=== PATIENT | male | born 1965 | race Caucasian/White ===

== ENCOUNTER 2018-03-27 12:40 | Emergency (ER) | payer OTHER ==
[2018-03-27] MEDS ORDERED: LIDO 2%/EPI 1:200000 PRESRVFRE (20 ML SDVIAL) ONE (12:49)
[2018-03-27] MEDS ORDERED: ceFAZolin 2 GRAM PREMIX BAG IVPB ONE ×2 (12:53→14:00)
[2018-03-27] MEDS ORDERED: DIPHTH,PERTUSS(ACELL),TET 0.5 ML DISP.SYRIN IM ONE (12:54)
[2018-03-27] MEDS ORDERED: ceFAZolin SODIUM 1 GM VIAL ONE (12:55)
[2018-03-27] MEDS ORDERED: LIDOCAINE HCL 1%, 10 MG/ML (20ML VIAL) ONE (12:57)
[2018-03-27 12:58] VITALS: BP 117/70; PULSE 60; TEMP 98; BMI 21.9
--- NOTE | 2018-03-27 13:09 | PDOC ---
History of Present Illness - General Chief Complaint: Laceration Stated Complaint: LEFT WRIST CUT Time Seen by Provider: 03/27/18 12:49 History Source: Patient Exam Limitations: No Limitations - History of Present Illness Initial Comments: 03/27/18 13:09 53y M no phx present with laceration. PT was doing gardening with a chainsaw and injured his L wrist. Pt denies any other injuries. No associated numbness/ tingling/weakness of his hand. pt also endorsed minimal bleeding pt not on any ac, asa. no meds at [facility]. Past History - Past Medical History Allergies/Adverse Reactions: Allergies Allergy/AdvReac Type Severity Reaction Status Date / Time No Known Allergies Allergy Verified 03/27/18 12:41 Home Medications: Ambulatory Orders No Home Medications 0 dose .ROUTE UTDICT 10/24/13 Cephalexin Monohydrate [Keflex -] 500 mg PO Q8H #15 capsule 03/27/18 COPD: No Other medical history: DENIES - Suicide/Smoking/Psychosocial Hx Smoking History: Never smoked Hx Alcohol Use: No Drug/Substance Use Hx: No Substance Use Type: Alcohol Review of Systems - Review of Systems Able to Perform ROS?: Yes Comments:: 03/27/18 13:10 Constitutional - no reported Fever, Chills, Musculskelatal - +wrist pain no reported back pain, joint swelling, neck pain skin - +wound no reported bruising, erythema, rash neurological: no reported numbness, focal weakness, tingling, ataxia, hematologic: no reported easy bruising, easy bleeding *Physical Exam - Vital Signs Last Vital Signs Temp Pulse Resp BP Pulse Ox 98.0 F 60 17 117/70 100 03/27/18 12:41 03/27/18 12:41 03/27/18 12:41 03/27/18 12:41 03/27/18 12:41 - Physical Exam Comments: 03/27/18 14:27 GENERAL: The patient is awake, alert, and fully oriented, Nontoxic - in no acute distress. NEUROLOGICAL: No facial assymetry, Normal speech, normal sensation throughout fingers/hand/wrist HAND/WRIST: L extremity exam: sensation intact throughout hand/fingers, motor function (flexion/exntesion) intact at each phylageal joint/wrist of each digit (tested independently). tendon visible underneeth the wound SKIN: Warm, Dry, normal turgor, 8 cm wound with irregular margins on volar aspect of L wrist, no signficiant active bleeding Procedures - Consent Consent obtained: Verbal - Laceration/Wound Repair Left Volar Wrist Wound Length: 7.6 to 12.5 cm Wound Explored: clean, no foreign body present Wound's Depth, Shape: superficial, irregular, contused tissue Irrigated w/ Saline: Yes Anesthesia: 1% Lidocaine Amount of Anesthetic (ccs): 14 Wound Debrided: moderate Wound Repaired With: Sutures Suture Size/Type: 4:0 Number of Sutures: 10 Layer Closure: No Sterile Dressing Applied: Yes Progress: 03/27/18 14:31 laceration irrigated throughly with 1L of NS no foreign bodies/particles identified distal end of wound was dibrided and closed proximal end of wound showed macerated skin, nonvialbe skin was dibrided, but part avulsed skin was loosely approximated Medical Decision Making - Medical Decision Making 03/27/18 13:19 traumatic laceration w/ chainsaw no neuro damage, completely motor intact each joint in phylanges tested indiependently on flexion/extension and are intact/strong tendon visible, but undamaged will give 2g ancef will update tetanus will irrigate throughly and close laceration 03/27/18 14:31 laceration reoaiured and irregiated bacitrac applied, dressed with strile gauze will discharge the patient with PO abx return in 48 hrs for a wound check signs of infections discussed with the aptient I discussed the physical exam findings, ancillary test results and final diagnoses with the patient. I answered all of the patient's questions. The patient was satisfied with the care received and felt comfortable with the discharge plan and treatment plan. The patient will call their primary care physician within 24 hours to arrange follow-up and will return to the Emergency Department with any new, persistent or worsening symptoms. *DC/Admit/Observation/Transfer Diagnosis at time of Disposition: Laceration - Discharge Dispostion Disposition: HOME Condition at time of disposition: Improved Admit: No - Referrals Referrals: [facility] [place] [facility] [place] [Provider Group] - Patient Instructions Printed Discharge Instructions: DI for Laceration Repair Additional Instructions: Regrese al departamento de emergencia de inmediato con NINGN sntoma nuevo, persistente o que empeore, incluidos enrojecimiento, sangrado, secrecin purulenta, hinchazn u otras preocupaciones. Mantenga el arnoldo limpia y seca cara 48 horas. regresa en 48 horas para un control de herida. No funciona por 1 semana. Luego puede limpiar suavemente con agua y jabn. Aplique bacitracin dos veces al da. Mantenga el arnoldo lejos raquel cara los prximos 9 meses, use protector solar y use un sombrero si necesita estar al andrew para mejorar la apariencia de la cicatriz. Regrese en 10-14 rascon para la eliminacin de la sutura. Complete los antibiticos segn lo prescrito. Los resultados fueron discutidos con usted. Asegrese de que douglass mdico revise los resultados de douglass evaluacin de emergencia. ===== Return to the emergency department immediately with ANY new, persistent or worsening symptoms including any redness, bleeding, purulent discharge, swelling or other concerns. Keep the area clean and dry for 48 hours. return in 48 hrs for a wound check. No working for 1 week. Afterwards you may clean gently with soap and water. Apply bacitracin twice a day. Keep the area away from the sun for the next 9 months, please use sunscreen and wear a hat if you need to be in the sun to improve appearance of the scar. Return in 10-14 days for suture removal. Complete the antibiotics as prescribed. Results were discussed with you. Please make sure your doctor reviews the results of your emergency evaluation. Print Language: SLOVAK - Post Discharge Activity
== END 2018-03-27 14:48 | disposition home or self-care (01) ==
LOC: FER 12:40
PROC: 0HQEXZZ Repair Left Lower Arm Skin, External Approach (ICD-10-PCS; principal; 2018-03-27)
PROC: 3E03329 Introduction of Other Anti-infective into Peripheral Vein, Percutaneous Approach (ICD-10-PCS; 2018-03-27)
PROC: 3E0234Z Introduction of Serum, Toxoid and Vaccine into Muscle, Percutaneous Approach (ICD-10-PCS; 2018-03-27)
DX: S61.512A Laceration without foreign body of left wrist, initial encounter (principal); W29.3XXA Contact with powered garden and outdoor hand tools and machinery, initial encounter; Y93.9 Activity, unspecified; Y92.007 Garden or yard of unspecified non-institutional (private) residence as the place of occurrence of the external cause
CPT/HCPCS: 90715; 99283-25

== ENCOUNTER 2018-04-02 13:09 | Emergency (ER) | payer OTHER ==
--- NOTE | 2018-04-02 13:11 | PDOC ---
History of Present Illness - General Chief Complaint: Revisit,Wound Recheck Stated Complaint: WOUND CHECK Time Seen by Provider: 04/02/18 13:10 - History of Present Illness Initial Comments: 04/02/18 13:11 Mr. Garduno is a 53 yo male w/ no pmh who presents for wound check. He was initially injured with a chain saw 03/27 and presented for evaluation and was given oral antibiotics at this time. He represented 03/29 when he noted purulent drainage from the hand and was admitted for 2 days of IV antibiotics, discharged 03/31. He presents today as he noticed something yellow coming out of his wound site when he went to clean it last night. The patient denies chest pain, shortness of breath, headache and dizziness. Denies fever, chills, nausea, vomit, diarrhea and constipation. Denies dysuria, frequency, urgency and hematuria. Allergies: NKDA Past History - Past Medical History Allergies/Adverse Reactions: Allergies Allergy/AdvReac Type Severity Reaction Status Date / Time No Known Allergies Allergy Verified 03/29/18 11:26 Home Medications: Ambulatory Orders Ibuprofen [Advil -] 1 tab PO PRN 03/29/18 Acetaminophen [Tylenol .Regular Strength -] 650 mg PO Q4H PRN tablet 03/31/18 Amox-Tr/K Cl [Augmentin 875-125mg Tablet -] 1 tab PO BID@0800,1730 #14 tablet Bacitracin - [Bacitracin Topical Ointment -] 1 applic TP BID #1 tube 03/31/18 Lactobacillus Acidophilus [Bacid -] 1 tab PO DAILY #30 tab 03/31/18 COPD: No - Immunization History Immunization Up to Date: Yes - Suicide/Smoking/Psychosocial Hx Smoking History: Never smoked Have you smoked in the past 12 months: No Hx Alcohol Use: Yes (OCCASSIONAL) Drug/Substance Use Hx: No Substance Use Type: Alcohol Hx Substance Use Treatment: No Review of Systems - Review of Systems Comments:: 04/02/18 13:11 GENERAL/CONSTITUTIONAL: No fever or chills. No weakness. HEAD, EYES, EARS, NOSE AND THROAT: No change in vision. No ear pain or discharge. No sore throat. CARDIOVASCULAR: No chest pain or shortness of breath RESPIRATORY: No cough, wheezing, or hemoptysis. GASTROINTESTINAL: No nausea, vomiting, diarrhea or constipation. GENITOURINARY: No dysuria, frequency, or change in urination. MUSCULOSKELETAL: +As described SKIN: No rash NEUROLOGIC: No headache, vertigo, loss of consciousness, or change in strength/ sensation. ENDOCRINE: No increased thirst. No abnormal weight change HEMATOLOGIC/LYMPHATIC: No anemia, easy bleeding, or history of blood clots. ALLERGIC/IMMUNOLOGIC: No hives or skin allergy. 04/02/18 13:40 *Physical Exam - Physical Exam Comments: 04/02/18 13:11 GENERAL: Awake, alert, and fully oriented, in no acute distress HEAD: No signs of trauma, normocephalic, atraumatic EYES: PERRLA, EOMI, sclera anicteric, conjunctiva clear ENT: Auricles normal inspection, hearing grossly normal, nares patent, oropharynx clear without exudates. Moist mucosa NECK: Normal ROM, supple, no lymphadenopathy, JVD, or masses LUNGS: No distress, speaks full sentences, clear to auscultation bilaterally HEART: Regular rate and rhythm, normal S1 and S2, no murmurs, rubs or gallops, peripheral pulses normal and equal bilaterally. ABDOMEN: Soft, nontender, normoactive bowel sounds. No guarding, no rebound. No masses EXTREMITIES: +Well healing injury site / sutures noted to volar surface of left forearm/wrist. No erythema, pain, or warmth noted. NEUROLOGICAL: Cranial nerves II through XII grossly intact. Normal speech, normal gait, no focal sensorimotor deficits SKIN: Warm, Dry, normal turgor, no rashes or lesions noted. Medical Decision Making - Medical Decision Making 04/02/18 13:41 Mr. Garduno is a 53 yo male w/ no pmh who presents for evaluation of left forearm wound. Wound evaluated and found to be well healing with no concern for infection at this time. Patient has appointment with hand specialist for evaluation at 1600 today. Patient instructed to keep appointment today. No concern for acute process at this time. Discharging to home. *DC/Admit/Observation/Transfer Diagnosis at time of Disposition: Visit for wound check - Discharge Dispostion Disposition: HOME Condition at time of disposition: Stable - Referrals - Patient Instructions Printed Discharge Instructions: DI for Laceration Repair -- Complex Suture Additional Instructions: Please return to ER if any pain, fever, chills, redness, or other concerning symptoms. Follow-up at your scheduled appointment later today as discussed. - Post Discharge Activity
[2018-04-02 13:17] VITALS: BP 114/80; PULSE 64; TEMP 97.9; BMI 22.1
--- NOTE | 2018-04-02 13:45 | PDOC ---
Attending Attestation - Resident Resident Name: Pradeep Garcia - ED Attending Attestation I have performed the following: I have examined & evaluated the patient, The case was reviewed & discussed with the resident, I agree w/resident's findings & plan, Exceptions are as noted - HPI HPI: 04/02/18 13:45 Mr. Garduno is a 53-year-old male who presents emergency department for reevaluation of his wound. Briefly he was working, using a chainsaw. He accidentally cut his left wrist He was seen in the ER Laceration repaired Pt returned 2 days later with surrounding erythema and wound infection He was admitted and discharged to home 2 days ago Pt presents to the ER for re evaluation because he noticed drainage from his wound No fevers or chills No surrounding erythema - Physicial Exam PE: 04/02/18 13:49 On examination Left forearm with wound noted Area of cellulitis that had previously been there is outlined There is no erythema Wound is moist appearing no expressible drainage noted Not warm moves fingers with no difficulty - Medical Decision Making 04/02/18 13:50 53yom presenting for wound check pt has no systemic signs of illness No local erythema He still is on abx Will plan to discharge to home Pt has follow up with Dr Damon today at 4pm Clinical impression: wound infection, initial presentation Discharge Disposition - Diagnosis Visit for wound check - Discharge Dispostion Disposition: HOME Condition at time of disposition: Stable Last Admission D/C Date: 03/31/18 Decision to Admit order: No - Referrals Referrals: Pipo Damon MD [Staff Physician] - - Patient Instructions Printed Discharge Instructions: DI for Laceration Repair -- Complex Suture Additional Instructions: Please return to ER if any pain, fever, chills, redness, or other concerning symptoms. Follow-up at your scheduled appointment later today as discussed. - Post Discharge Activity
== END 2018-04-02 14:10 | disposition home or self-care (01) ==
LOC: FER 13:09
DX: Z48.01 Encounter for change or removal of surgical wound dressing (principal)
CPT/HCPCS: 99282-25